=== PATIENT | female | born 1975 | race Caucasian/White ===

== ENCOUNTER → 2016-09-09 | Outpatient (CLI) | payer OTHER ==
--- NOTE | 2016-09-09 12:45 | DIAGNOSTIC IMAGING REPORT ---
RENAL ULTRASOUND HISTORY: Renal cyst RENAL CYST COMPARISON: None. FINDINGS: Right kidney: Maximum dimension 11.0 cm. 4.7 cm lower pole cyst. Normal corticomedullary differentiation and cortical thickness. Left kidney: Maximum dimension 12.2 cm. No evidence for hydronephrosis. Normal corticomedullary differentiation and cortical thickness. Bladder: No bladder wall thickening. The bilateral ureteral jets were identified. IMPRESSION: 4.7 cm right renal cyst. Otherwise negative study Electronically signed by: Frandy Wagner M.D. 09/09/2016 12:44 PM Dictated Date/Time: 09/09/2016 12:43 PM
== END | disposition home or self-care (01) ==
LOC: C.ULTR 12:12
PROVIDERS: ATTEND Urology
DX: N28.1 Cyst of kidney, acquired (principal)